=== PATIENT | male | born 1955 | race Two or more races ===

== ENCOUNTER 2022-07-07 10:20 | Emergency (ER) | payer MEDICARE, OTHER, SELFPAY ==
--- NOTE | ~2022-07-07 | XR_ITS ---
EXAMINATION: CHEST AND RIGHT SHOULDER CLINICAL INFORMATION: Chest and right shoulder pain after fall COMPARISON: None TECHNIQUE: PA and lateral chest. Three-view right shoulder. FINDINGS: PA and lateral views of the chest do not demonstrate any evidence of acute parenchymal disease, pneumothorax, or pleural effusion. Heart normal size. No evidence of pulmonary edema. There is no evidence of acute fracture or dislocation of the right shoulder. Glenohumeral joint appears unremarkable. There is degenerative change of the right acromioclavicular joint with joint space narrowing and spurring. View right shoulder and PA and lateral chest. XR/XR shoulder RT min 2V IMPRESSION: No acute parenchyma disease within the chest. No evidence of acute fracture or dislocation of the right shoulder. Degenerative change of the right acromioclavicular joint.
--- NOTE | ~2022-07-07 | XR_ITS ---
EXAMINATION: CHEST AND RIGHT SHOULDER CLINICAL INFORMATION: Chest and right shoulder pain after fall COMPARISON: None TECHNIQUE: PA and lateral chest. Three-view right shoulder. FINDINGS: PA and lateral views of the chest do not demonstrate any evidence of acute parenchymal disease, pneumothorax, or pleural effusion. Heart normal size. No evidence of pulmonary edema. There is no evidence of acute fracture or dislocation of the right shoulder. Glenohumeral joint appears unremarkable. There is degenerative change of the right acromioclavicular joint with joint space narrowing and spurring. View right shoulder and PA and lateral chest. XR/XR chest 2V IMPRESSION: No acute parenchyma disease within the chest. No evidence of acute fracture or dislocation of the right shoulder. Degenerative change of the right acromioclavicular joint.
--- NOTE | ~2022-07-07 | CT_ITS ---
EXAMINATION: CT CHEST WITHOUT CONTRAST CLINICAL INFORMATION: Status post fall with right rib cage/right shoulder pain COMPARISON: X-rays earlier today TECHNIQUE: Multidetector volumetric CT imaging of the chest was done. Axial MIP volume rendering provided. Sagittal and coronal reformatted images were obtained. This CT examination was performed using dose optimization techniques as appropriate, variously including the following: *Automated exposure control *Adjustment of mA and/or kV according to patient size (this includes techniques or standardized protocols for targeted exams where dose is matched to indication/reason for exam; i.e. 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 No focal consolidation or mass. Minimal dependent atelectasis. Patchy nodular consolidation up to 9 mm in diameter is seen in the lateral periphery of the lingula. This is nonspecific. Mild central bronchial wall thickening is present. There is a densely calcified left upper lobe granuloma. MEDIASTINUM: Normal heart size. No pericardial effusion. No hilar or mediastinal lymphadenopathy. CORONARY ARTERY CALCIFICATION: Left anterior descending coronary artery calcification is present. PLEURA: There is no pleural effusion. No pleural mass or thickening. AXILLA: No lymphadenopathy. UPPER ABDOMEN: Unremarkable. OSSEOUS STRUCTURES: Bilateral acromioclavicular joint arthrosis. Osteoarthritis of the bilateral shoulders. There is asymmetric spurring at the right sixth and seventh costovertebral junctions which could reflect fracture callus from healing fractures or osteophytosis from asymmetric osteoarthritis. CT/CT chest wo IV con IMPRESSION: There is asymmetric spurring at the right sixth and seventh costovertebral junctions which could reflect fracture callus from healing fractures or osteophytosis from asymmetric osteoarthritis. Patchy nodular consolidation seen in the lingula. The appearance favors an infectious or inflammatory etiology. Given the size, recommend 3-six-month follow-up chest CT to assess for resolution. Fleischner guidelines were followed.
--- NOTE | 2022-07-07 10:23 | ECG_ITS ---
Test Reason : CHEST PAIN Blood Pressure : / mmHG Vent. Rate : 072 BPM Atrial Rate : 072 BPM P-R Int : 150 ms QRS Dur : 090 ms QT Int : 382 ms P-R-T Axes : 052 -15 011 degrees QTc Int : 418 ms Normal sinus rhythm Normal ECG No previous ECGs available Referred By: Generic ED Physician Electronically Signed By:BHUPENDRA RALPH MD
[2022-07-07 10:28] VITALS: BP 168/84; PULSE 83; RESP 17; TEMP 36.6; O2SAT 99; BMI 26.2
--- NOTE | 2022-07-07 15:13 | ED_ITS ---
HPI - Fall General Chief Complaint: Fall Stated Complaint: Chest pain Time Seen by Provider: 07/07/22 14:26 Source: patient and family (Daughter and at bedside) Mode of arrival: ambulatory Limitations: language barrier (Samoan-speaking) History of Present Illness HPI Narrative: 66yoM presenting to the ED with daughter at bedside c c/o right shoulder and right anterior chest wall/lateral rib cage pain after he had a mechanical fall trying to get into his daughter's van yesterday after he had just arrived from [place] to visit his daughter with his . He denies head injury or loss of consciousness or prolonged down time. Reports he is on aspirin no other blood thinners. He denies neck pain or injury. He denies shortness of breath, dyspnea on exertion, orthopnea, palpitations, paresthesias, nausea/vomiting, abdominal pain, back pain, any other extremity pain or injury or any other symptoms complaints or concerns or injuries at this time. MD complaint: fall Onset (ago): day(s) (Yesterday) Fall from: standing Fall witnessed: yes, by family Place fall occurred: street Loss of consciousness: none Prolonged down time: no Symptoms prior to fall: none Context: tripped/slipped Location of injury: chest Location of injury - extremities: right: shoulder Severity: moderate Quality: sharp, aching, spasming and throbbing Associated symptoms (after fall): denies Related Data Previous Rx's Medication Instructions Recorded acetaminophen 500 mg tablet 1,000 mg PO QID PRN fever or pain 07/07/22 (Tylenol Extra Strength) #14 tabs oxycodone 5 mg tablet 5 mg PO Q6H PRN pain #14 tabs 07/07/22 Allergies Allergy/AdvReac Type Severity Reaction Status Date / Time No Known Allergies Allergy Verified 07/07/22 14:33 Review of Systems Review of Systems: Constitutional : No Weight loss, No Fever, No Chills, No Night Sweats, No Fatigue, No Malaise ENT/Mouth : No Hearing loss, No Ear Pain, No Nasal Congestion, No Sinus Pain, No Hoarseness, No sore throat, No Rhinorrhea, No Swallowing Difficulty Eyes: No Eye Pain, No Swelling, No Redness, No Foreign Body, No Discharge, No Vision Changes Cardiovascular : No Chest Pain, No SOB, No Dyspnea on Exertion, No Orthopnea, No Edema, No Palpitations Respiratory : No Cough, No Sputum, No Wheezing, No Smoke Exposure, No Dyspnea Gastrointestinal : No Nausea, No Vomiting, No Diarrhea, No Constipation, No abdominal Pain, No Hematochezia, No Melena Genitourinary : no irregular bleeding, No Dysuria, No Urinary Frequency, No Hematuria, No Urinary Incontinence, No Urgency, No Flank Pain, No Urinary Flow Changes, No Hesitancy Musculoskeletal : + right shoulder joint pain, + anterior chest wall/rib cage pain, No Myalgias, No Joint Swelling Skin : No Skin Lesions, No rash Neuro : No Weakness, No Numbness, No Paresthesias, No Loss of Consciousness, No Dizziness, No Headache Psych : No Anxiety/Panic, No Depression, No SI/HI/AH/VH, No Social Issues, Heme/Lymph: No Bruising, No Bleeding,No Lymphadenopathy Endocrine : No Polyuria, No Polydipsia, No Temperature Intolerance Yes all other systems are reviewed and are negative [facility] Past Medical History Attestation statement: The following information was validated with the patient. Source: old records reviewed, obtained from family and nursing notes reviewed Social History Social History Advance Directives: Yes Advance Directives Information Provided: Yes Advance Directives on File: No Physical Exam Vital Signs: Vital Signs: Last Vital Signs Temp 98 F 07/07/22 10:28 Pulse 83 07/07/22 10:28 Resp 17 07/07/22 10:28 BP 168/84 H 07/07/22 10:28 Pulse Ox 99 07/07/22 10:28 O2 Del Method 07/07/22 10:28 BMI result Body Mass Index 26.2 vital signs have been reviewed as normal and appeared to be correct. Blood pressure 168/84. Heart rate normal. Respiration rate normal. Temperature normal. Oxygen saturation normal. Appearance: Alert. Oriented X3. No acute distress. Head: Normal external exam. Normocephalic. Atraumatic. No Shields signs noted. No raccoon eyes noted Eyes: PERRLA. EOMI. Conjunctiva and sclera normal. Eyelids normal. ENT: Pharynx normal. Uvula midline. Moist mucous membranes. No lesions/ulcerations or masses noted on the tongue. Normal voice. No trismus noted. No drooling noted. No muffled voice noted. Neck: Normal inspection. Neck supple. FROM. No adenopathy. Thyroid Normal. No meningeal signs. No signs of trauma noted. CVS: Normal heart rate and rhythm. Heart sound normal. Pulses normal throughout. No murmurs/rales/gallops. Respiratory: No respiratory distress. Painless inspiration. Breath sounds normal. No wheezes/rales/rhonchi noted. Chest with tenderness palpation to the r ight mid to lower anterior and lateral chest wall/rib cage. Not consistent with flail chest. No crepitus is noted. No accessory muscle usage noted or decreased air movement noted. No signs of trauma. Abdomen: Soft and nontender. Nondistended. Back: Full range of motion noted. Nontender. No signs of trauma. Patient neuro intact bilaterally and distally on all 4 extremities. Skin: Skin warm and dry. Normal skin color. Normal skin turgor. No rashes/lesions/lacerations noted. Extremities: Patient moderate tenderness palpation to the right AC joint with limited range of motion due to pain. Reports he would rather hold in internal rotation/flexion against his chest/abdomen. Patient unable to perform flexion of the arm. He is unable to perform extension. Unable to perform hyper extension. He does attempt abduction although only at approximately 30 degrees. He is able to squeeze both my hands and able to pull me towards him and push me away. No obvious ligamentous or tendon injury noted. Otherwise all other extremities exhibit normal range of motion nontender. Neuro: Oriented X 3. No motor deficit. No sensory deficit. Reflexes normal. Normal steady gait. No focal neuro deficits noted. CN's II-XII intact bilaterally? Vascular: + radial pulses/+ 2 distal pedal pulses/+2 dorsalis pedis b/l. Normal cap refill. No cyanosis noted to upper extremity nails and lower extremity toes nails. Course Course Course Narrative: 14:40pm - 66yoM presenting to the ED with daughter at bedside c c/o right shoulder and right anterior chest wall/lateral rib cage pain after he had a mechanical fall trying to get into his daughter's van yesterday after he had just arrived from [place] to visit his daughter with his . He denies head injury or loss of consciousness or prolonged down time. Reports he is on aspirin no other blood thinners. He denies neck pain or injury. He denies shortness of breath, dyspnea on exertion, orthopnea, palpitations, paresthesias, nausea/vomiting, abdominal pain, back pain, any other extremity pain or injury or any other symptoms complaints or concerns or injuries at this time. X-ray of right shoulder and chest x-ray negative for any acute process while the patient was in waiting room. EKG normal sinus rhythm ventricular rate of 72 with a normal AR interval normal QRS duration normal QT/QTC interval. No acute ischemic change are noted. No prior EKGs to compare to at this time. Plan: Will obtain a CT scan of chest. Provide a sling. Provide oxycodone 5 mg. And re-evaluate. Reevaluation(s) Reevaluation #1: - CT scan of chest revealed pulmonary nodule and osteoarthritis otherwise no other acute processes noted. Therefore printed out the results and handed to the patient and his family at bedside his and his daughter. I explained to him that if he is going to be hears and he should follow-up with a primary care provider or he is going to go back to [place] that he should bring this paperwork and bring it to [place] with him and he should have a repeat CT scan in 3 months. They report that he has been having a dry cough for months he is not having any fevers and no sputum production. He denies being a smoker. No history of cancer. I explained to them that I cannot rule out cancer although I am not saying that he has cancer at this time that he will need a repeat CT scan in 3 months. They understand agree this plan. Time: 16:12 MDM - Fall Medical Records Attestation: I reviewed the patient's medical records. Imaging Data Right shoulder and chest x-ray: Attestation: I personally reviewed and interpreted this imaging study as jacque gonzalez: Radiologist's impression: FINDINGS: PA and lateral views of the chest do not demonstrate any evidence of acute parenchymal disease, pneumothorax, or pleural effusion. Heart normal size. No evidence of pulmonary edema. There is no evidence of acute fracture or dislocation of the right shoulder. Glenohumeral joint appears unremarkable. There is degenerative change of the right acromioclavicular joint with joint space narrowing and spurring. View right shoulder and PA and lateral chest.? XR/XR shoulder RT min 2V IMPRESSION: No acute parenchyma disease within the chest. ? No evidence of acute fracture or dislocation of the right shoulder. Degenerative change of the right acromioclavicular joint.? 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 No focal consolidation or mass. Minimal dependent atelectasis. Patchy nodular consolidation up to 9 mm in diameter is seen in the lateral periphery of the lingula. This is nonspecific. Mild central bronchial wall thickening is present. There is a densely calcified left upper lobe granuloma.? MEDIASTINUM: Normal heart size. No pericardial effusion. No hilar or mediastinal lymphadenopathy.? CORONARY ARTERY CALCIFICATION: Left anterior descending coronary artery calcification is present. PLEURA: There is no pleural effusion. No pleural mass or thickening.? AXILLA: No lymphadenopathy.? UPPER ABDOMEN: Unremarkable.? OSSEOUS STRUCTURES: Bilateral acromioclavicular joint arthrosis. Osteoarthritis of the bilateral shoulders. There is asymmetric spurring at the right sixth and seventh costovertebral junctions which could reflect fracture callus from healing fractures or osteophytosis from asymmetric osteoarthritis.? CT/CT chest wo IV con IMPRESSION: There is asymmetric spurring at the right sixth and seventh costovertebral junctions which could reflect fracture callus from healing fractures or osteophytosis from asymmetric osteoarthritis.? ? Patchy nodular consolidation seen in the lingula. The appearance favors an infectious or inflammatory etiology. Given the size, recommend 3-six-month follow-up chest CT to assess for resolution. ? Fleischner guidelines were followed. ECG Data Attestation: I personally reviewed and interpreted this ECG as follows: ECG interpretation date: 07/07/22 ECG interpretation time: 10:24 Interpretation: EKG normal sinus rhythm ventricular rate of 72 with a normal AR interval normal QRS duration normal QT/QTC interval. No acute ischemic change are noted. No prior EKGs to compare to at this time. Discharge Plan Discharge Clinical Impression: Fall, Sprain of right shoulder, Lung nodule, Osteoarthritis, Sprain and strain of ribs Patient Disposition: Home, Self-Care Instructions: Osteoarthritis (ED), Shoulder Sprain (ED), Pulmonary Nodules (ED) Prescriptions: New acetaminophen [Tylenol Extra Strength] 500 mg tablet 1,000 mg PO QID PRN (Reason: fever or pain) Qty: 14 0RF oxycodone 5 mg tablet 5 mg PO Q6H PRN (Reason: pain) Qty: 14 0RF Rx Instructions: Partial Fill upon patient request. Referrals: [facility] [Provider Group] (Call to make a follow-up appointment the next few weeks if symptoms persist Llame para hacer anna linda de seguimiento en las pr?ximas semanas si los s?ntomas persisten) Physician,Unknown J [Primary Care Provider] - (your pcp within [address] scan due to lung nodules goins PCP dentro de los 3 meses para repetir la tomograf?a computarizada debido a n?dulos pulmonares) Print Language: Samoan
[2022-07-07] MEDS: oxyCODONE HCl Immed Release 5 MG TABLET PO (15:23)
== END 2022-07-07 16:25 | disposition home or self-care (01) ==
PROVIDERS: Emergency Provider Emergency Medicine
DX: S43.401A Unspecified sprain of right shoulder joint, initial encounter (principal); S23.41XA Sprain of ribs, initial encounter; R07.89 Other chest pain; M25.511 Pain in right shoulder; R91.8 Other nonspecific abnormal finding of lung field; M54.2 Cervicalgia; W01.0XXA Fall on same level from slipping, tripping and stumbling without subsequent striking against object, initial encounter; R51.9 Headache, unspecified; Y93.9 Activity, unspecified; Y92.9 Unspecified place or not applicable; Y99.9 Unspecified external cause status; Z79.899 Other long term (current) drug therapy
CPT/HCPCS: 71046; 71250; 73030; 93005; 99283